=== PATIENT | female | born 1955 | race Asian ===

== ENCOUNTER 2018-05-11 01:28 | Emergency (ER) | payer BC ==
[~2018-05-11] VITALS: Ht 154.9 cm; Wt 61.7 kg
[2018-05-11 01:40] VITALS: Ht 154.9 cm; Wt 61.7 kg
[2018-05-11 02:07] LABS: BASOPHIL % 0.4 % (0-2); PLATELET COUNT 150 x10^3mcL (130-400); RED CELL DISTRIBUTION WIDTH 13.9 % (11.5-14.5)
[2018-05-11 02:28] LABS: CALCIUM 8.6 mg/dL (8.5-10.1); CARBON DIOXIDE 29.2 mmol/L (21-32); CREATININE SERUM 1.1 mg/dL (0.6-1.0); POTASSIUM SERUM 3.8 mmol/L (3.5-5.1)
[2018-05-11 02:43] LABS: ALBUMIN 3.5 g/dL (3.4-5.0); BILIRUBIN TOTAL 0.27 mg/dL (0.20-1.00); FREE T4 0.85 ng/dL (0.76-1.46); MAGNESIUM 1.9 mg/dL (1.8-2.4); PHOSPHOROUS 3.9 mg/dL (2.5-4.9); TOTAL PROTEIN, SERUM 7.5 g/dL (6.4-8.2)
[2018-05-11 03:25] VITALS: BP 112/80
== END 2018-05-11 03:25 | disposition home or self-care (01) ==
LOC: ED 01:28
PROVIDERS: Emergency Medicine
DX: I48.0 Paroxysmal atrial fibrillation (principal); Z98.890 Other specified postprocedural states
CPT/HCPCS: 36415; 84439